=== PATIENT | male | born 1995 | race Caucasian/White ===

== ENCOUNTER 2020-09-05 08:09 | Emergency (ER) | payer BC, SELFPAY ==
--- NOTE | 2020-09-05 08:19 | ED.LOWEXIN ---
HPI - Extremity Injury (Lower) General Chief Complaint: Extremity Injury, Lower Stated Complaint: left foot pain Time Seen by Provider: 09/05/20 08:20 Source: patient and RN notes reviewed Mode of arrival: ambulatory Limitations: no limitations History of Present Illness HPI Narrative: 25 male presents with concern for left foot pain. Reports yesterday he was working on a deck when he dropped a piece of the decking on his left foot. 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 He denies any bruising, laceration. Reports limited pain with rest, pain with weightbearing. Denies intervention. MD complaint: foot injury Injury: Left: foot Related Data Home Medications Medication Instructions Recorded Confirmed No Home Medications 09/05/20 09/05/20 Allergies Allergy/AdvReac Type Severity Reaction Status Date / Time No Known Allergies Allergy Verified 09/05/20 08:23 Review of Systems Review of Systems: Narrative: CONSTITUTIONAL: Denies malaise, chills, sweats, or fever. SKIN: Denies laceration, abrasions MUSCULOSKELETAL: Reports left foot pain, denies decreased strength, range of motion NEUROLOGIC: Denies numbness, weakness All systems reviewed & are unremarkable except as noted in HPI and below PMFSH Social History Social History Gender identity (if verbalized by the patient): Male Comments At time of signature, agree with nursing past medical, surgical, social and family history. There is no relevant family history pertinent to the presenting complaint Exam Narrative: Exam Narrative: GENERAL: Well-appearing, well-nourished, and in no acute distress. HEAD: Normocephalic, atraumatic. EYES: PERRLA, conjunctivae clear NECK: Supple. CHEST: Speaks in full sentences. No respiratory distress. HEART: Regular rate and rhythm. Normal and equal peripheral pulses. EXTREMITIES: Left foot, digits of left foot have normal strength and sensation, normal range of motion. No edema or ecchymosis. 5/5 strength with ankle and digit flexion and extension. Normal sensation with sensitivity to light touch and pain. Mild dorsal tenderness. No open wounds, no skin tenting, no devitalized tissue or atrophy, no trophic changes, no obvious deformity, alignment normal, nearby joints and structures intact. Distal pulses palpable and equal bilaterally, skin warm, dry, pink. Capillary refill less than 3 seconds. SKIN: Warm, dry, no rash. NEURO: Alert and oriented x3. PSYCH: Normal mood and affect Course Course Emergency Course: The patient managing foot. Patient would prefer to not have x-rays today. Patient advised that before he returns to work if symptoms persist, do not improve he should return for reevaluation of his injury. Patient is aware of diagnosis, understands and agrees to treatment plan. Anticipatory guidance given. Patient agrees to follow-up as directed and is aware of reasons to seek care at the emergency department. Portions of this record may have been created with voice recognition software Vital Signs Vital signs: Vital Signs Temperature 96.8 F L 09/05/20 08:20 Pulse Rate 69 09/05/20 08:20 Respiratory Rate 16 09/05/20 08:20 Blood Pressure 141/92 H 09/05/20 08:20 Pulse Oximetry 99 09/05/20 08:20 Temperature 96.8 F L 09/05/20 08:20 Pulse Rate 69 09/05/20 08:20 Respiratory Rate 16 09/05/20 08:20 Blood Pressure 141/92 H 09/05/20 08:20 Pulse Oximetry 99 09/05/20 08:20 Reviewed. MDM - Extremity Injury (Lower) MDM Narrative Medical decision making narrative: Patients injury and pain is consistent with musculoskeletal etiology. No signs of neurological or vascular compromise on exam. Compartments and tissues are soft without signs of compartment syndrome. Pain is felt appropriate for further evaluation on an outpatient basis. Critical Care Time Critical Care Time Critical Care Time: No Discharge Plan Discharge Clinical Impression: Acu
[2020-09-05 08:20] VITALS: BP 141/92; PULSE 69; RESP 16; TEMP 36; O2SAT 99
== END 2020-09-05 08:39 | disposition home or self-care (01) ==
PROVIDERS: Emergency Provider Nurse Practitioner
DX: M79.672 Pain in left foot (principal)
CPT/HCPCS: 99211; 99213; G0463

== ENCOUNTER 2023-05-16 11:22 | Emergency (ER) | payer BC, SELFPAY ==
[2023-05-16 11:38] VITALS: BP 149/100; PULSE 91; RESP 16; TEMP 36.7; O2SAT 99
--- NOTE | 2023-05-16 12:25 | ED.URI ---
HPI - URI/Sore Throat General Chief Complaint: Upper Respiratory Infection Stated Complaint: sinus issue,eye discharge Time Seen by Provider: 05/16/23 12:26 Source: patient Mode of arrival: ambulatory Limitations: no limitations History of Present Illness HPI Narrative: 28-year-old male presented for complaint of sinus congestion, runny nose, sinus pressure for over 1 month. He endorses recently having drainage from his eyes. He denies cough, shortness breath, wheezing, nausea, vomiting, fevers or chills. He is taking Mucinex and Zyrtec for symptoms. Related Data Allergies Allergy/AdvReac Type Severity Reaction Status Date / Time No Known Allergies Allergy Verified 05/16/23 11:37 Review of Systems Review of Systems: CONSTITUTIONAL: Denies body aches, fever, chills, or sweats. EYES: Denies visual changes, redness, reports discharge. ENT: Reports rhinorrhea, congestion, denies sore throat, or otalgia. CARDIOVASCULAR: Denies chest pain, palpitations, or edema. RESPIRATORY: Denies cough or dyspnea. SKIN: Denies rash, itching, or wounds. MUSCULOSKELETAL: Denies back pain, joint pain, or myalgia. NEUROLOGIC: Denies headache, numbness, tingling, or weakness. All systems reviewed & are unremarkable except as noted in HPI and below PMFSH Past Medical History Medical History (Updated 05/16/23 @ 12:34 by Bell Duron APRN) No pertinent past medical history Social History Social History Gender identity (if verbalized by the patient): Male Comments At time of signature, I have reviewed and agree with nursing past medical, surgical, social and family history unless otherwise noted. Please see nursing chart for further information. There is no relevant family history pertinent to the presenting complaint Exam Narrative: GENERAL: Well-appearing, EYES: EOMI. No redness or drainage. Conjunctivae normal. ENT: Mucous membranes pink and moist. nasal congestion. TMs normal light reflex with clear effusion bilaterally. Throat normal. Uvula midline. NECK: Normal AROM. Supple. No lymphadenopathy. CHEST: No respiratory distress. Clear to auscultation. HEART: Regular rate and rhythm. No murmur appreciated. Normal peripheral pulses. SKIN: Warm, dry, no rash. Capillary refill normal. Normal skin turgor. NEURO: No focal deficits. Alert and oriented x3. Gait steady. PSYCH: Normal affect. Course Course Emergency Course: Patient is aware of diagnosis, understands and agrees to treatment plan. Anticipatory guidance given. Patient agrees to follow-up as directed and is aware of reasons to seek care at the emergency department. Portions of this record may have been created with voice recognition software Level of Care: Express Care Visit Vital Signs Vital signs: Vital Signs Temperature 98.1 F 05/16/23 11:38 Pulse Rate 91 05/16/23 11:38 Respiratory Rate 16 05/16/23 11:38 Blood Pressure 149/100 H 05/16/23 11:38 Pulse Oximetry 99 05/16/23 11:38 Oxygen Delivery Room Air 05/16/23 11:38 Temperature 98.1 F 05/16/23 11:38 Pulse Rate 91 05/16/23 11:38 Respiratory Rate 16 05/16/23 11:38 Blood Pressure 149/100 H 05/16/23 11:38 Pulse Oximetry 99 05/16/23 11:38 Oxygen Delivery Room Air 05/16/23 11:38 MDM - URI/Sore Throat MDM Narrative Medical decision making narrative: Discussed physical exam findings. Advised supportive measures and signs/symptoms to go to the ER. Pt is appropriate for outpt treatment and f/u. Differential Diagnosis Differential diagnosis: Likely upper respiratory infection, otitis media, sinusitis and viral infection Discharge Plan Discharge Clinical Impression: Sinusitis Patient Disposition: Home, Self-Care Condition: Stable Instructions: Antibiotic Form, Rhinosinusitis (ED) Additional Instructions: take antibiotic as directed Recommend Flonase spray and Zyrtec (or C
== END 2023-05-16 12:43 | disposition home or self-care (01) ==
PROVIDERS: Emergency Provider Nurse Practitioner Family
DX: J32.9 Chronic sinusitis, unspecified (principal)
CPT/HCPCS: 99213; G0463

== ENCOUNTER 2023-12-14 17:35 | Emergency (ER) | payer BC, SELFPAY ==
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
[2023-12-14 17:46] VITALS: BP 142/92; PULSE 69; RESP 16; TEMP 36.5; O2SAT 99
[2023-12-14] MEDS: LIDOCAINE HCL 1% LOCAL INJ 2 ML AMPUL 6 ML INFILTRATE (18:07)
[2023-12-14] MEDS: TETANUS,DIPHTHERIA,AC PERTUSSIS ADULT (0.5 ML) BOOSTRIX IM (18:07)
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
== END 2023-12-14 18:43 | disposition home or self-care (01) ==
PROVIDERS: Emergency Provider Nurse Practitioner
DX: S63.502A Unspecified sprain of left wrist, initial encounter (principal); V18.4XXA Pedal cycle driver injured in noncollision transport accident in traffic accident, initial encounter; S61.412A Laceration without foreign body of left hand, initial encounter; Z23 Encounter for immunization
CPT/HCPCS: 12001; 73110; 90471; 90715; 99213; G0463